=== PATIENT | male | born 1930 | race Caucasian/White ===

== ENCOUNTER 2018-09-03 13:07 | Emergency (ER) | payer OTHER ==
--- NOTE | 2018-09-03 13:24 | EDPHY ---
H & P Stated Complaint: L wrist pain Time Seen by Provider: 09/03/18 13:24 HPI/ROS: CHIEF COMPLAINT: Pain over left ulnar styloid HISTORY OF PRESENT ILLNESS: The patient presents the ED with complaints of pain over his left ulnar styloid. The patient denies any history of a known fall or trauma. He has painful range of motion over the distal left wrist. He denies any history of fever. He denies any acute numbness or weakness. He denies prior history of inflammatory arthritis. REVIEW OF SYSTEMS: A comprehensive 10 point review of systems is otherwise negative aside from elements mentioned in the history of present illness. Source: Patient Exam Limitations: No limitations - Personal History Current Tetanus/Diphtheria Vaccine: Yes Current Tetanus Diphtheria and Acellular Pertussis (TDAP): Yes - Medical/Surgical History Hx Asthma: No Hx Chronic Respiratory Disease: No Hx Diabetes: No Hx Cardiac Disease: Yes Hx Renal Disease: No Hx Cirrhosis: No Hx Alcoholism: No Hx HIV/AIDS: No Hx Splenectomy or Spleen Trauma: No Other PMH: GERD - Social History Smoking Status: Never smoked - Physical Exam Exam: General Appearance: Elderly male, no acute distress Head: Atraumatic Eyes: Pupils equal, round, reactive Respiratory: No chest wall tender, no subcutaneous air, lungs clear bilaterally Cardiovascular: Regular rate and rhythm Skin: No lacerations, No abrasion Extremities: Tenderness to palpation over the left ulna styloid Constitutional: Initial Vital Signs Temperature (C) 36.7 C 09/03/18 13:12 Heart Rate 81 09/03/18 13:12 Respiratory Rate 16 09/03/18 13:12 Blood Pressure 114/87 H 09/03/18 13:12 O2 Sat (%) 95 09/03/18 13:12 O2 Delivery Mode Room Air Allergies/Adverse Reactions: No Known Allergies Allergy (Unverified 09/03/18 13:11) Home Medications: Medication Instructions Recorded Pantoprazole Sodium 09/03/18 traMADol 09/03/18 Medical Decision Making - Diagnostics Imaging Results: Left wrist x-ray: Images reviewed by myself, negative for fracture, dislocation or other acute abnormality. ED Course/Re-evaluation: Patient presents to the ED with isolated point tenderness over his left ulna styloid. The patient has no clinical evidence of septic arthritis. He has no evidence of zoster. Patient was taken for an x-ray. X-ray demonstrates no evidence of an obvious fracture. At this point time I do recommend treatment with Tylenol and ibuprofen only. The patient has been instructed to return to the ED for any fever, joint swelling, the development of new neurologic symptoms, worsening symptoms or other concerns. Differential Diagnosis: Differential diagnosis considered includes fracture, sprain, dislocation Departure - Departure Disposition: Home, Routine, Self-Care Clinical Impression: Left wrist sprain Condition: Good Instructions: Musculoskeletal Pain (ED) Additional Instructions: 1. Take Ibuprofen or Motrin 600 mg by mouth three times a day. 2. Tylenol 650 mg every 6 hr as needed for pain. 3. Return to the ED for markedly increased pain, redness, swelling or fever as this may be the sign of a worsening condition requiring further evaluation. 4. Follow up with your primary care provider for a recheck in the next 3-4 days for any ongoing mild symptoms 5. Your x-ray demonstrates no evidence of a fracture. Referrals: CLAIRE BUENO [Primary Care Provider] - As per Instructions
[2018-09-03 14:20] VITALS: BP 125/78
== END 2018-09-03 14:30 | disposition home or self-care (01) ==
DX: S63.502A Unspecified sprain of left wrist, initial encounter (principal)